=== PATIENT | female | born 1960 ===

== ENCOUNTER 2025-03-26 19:57 | Observation (INO) | payer BC, MEDICARE ==
[~2025-03-26] VITALS: Ht 154.9 cm; Wt 84.1 kg
[2025-03-26 21:59] VITALS: BP 150/70
[2025-03-26] MEDS ORDERED: Ondansetron HCl 2 MG / ML 2ML Vial IV PRN (22:30)
[2025-03-26] MEDS ORDERED: FLU VACC TS2025-26(6MOS UP)/PF 45 MCG/0.5 ML SYRINGE IM SCH (22:30)
[2025-03-26 23:06] LABS: pH Blood Venous 7.38 (7.34-7.37)
[2025-03-26 23:17] LABS: Prothrombin Time Results 10.8 Sec (9.7-11.5)
[2025-03-26 23:27] LABS: Alanine Aminotransfer (ALT/SGP 30.0 U/L (12-78); Albumin, Blood 3.1 g/dL (3.4-5.0); Albumin/Globulin Ratio 0.8 (0.8-1.8); Anion Gap 16.0 mmol/L (3-11); Aspartate Aminotrans (AST/SGOT 22.0 U/L (12-37); Bilirubin, Total 0.4 mg/dL (0.1-1.0); Blood Urea Nitrogen 16.0 mg/dL (8-24); CO2, Blood 23.0 mmol/L (21-32); Calcium, Blood 9.0 mg/dL (8.5-10.1); Chloride, Blood 105.0 mmol/L (98-108); Creatinine, Blood 1.73 mg/dL (0.40-1.00); Globulin, Blood 4.0 g/dL (2.2-4.0); Glucose, Blood 98.0 mg/dL (70-99); Magnesium, Blood 2.9 mg/dL (1.6-2.4); Potassium, Blood 4.0 mmol/L (3.5-5.5); Sodium, Blood 140.0 mmol/L (136-145); Total Protein, Blood 7.1 g/dL (6.4-8.2)
[2025-03-26 23:34] LABS: Hematocrit 38.9 % (33.0-51.0); Hemoglobin 13.2 g/dL (11.5-16.0); Mean Corpuscular HGB Conc 33.9 g/dL (31.5-36.5); Mean Corpuscular Volume 84 fL (80-100); Platelet Count 743 K/mm3 (150-400); RDW Coefficient Variation 15.2 % (11.7-14.2); RDW Standard Deviation 46.6 fL (35.1-46.3)
[2025-03-26 23:40] LABS: NRBC ABSOLUTE 0.00 K/mm3 (0.00-0.02); NRBC Auto 0.0 /100 WBC (0.0-0.2)
[2025-03-27 00:18] LABS: BAND PERCENT MAN 1 % (0-8); BASOPHILS ABSOLUTE MAN 0.07 K/mm3 (0.00-0.23); BASOPHILS PERCENT MAN 1 % (0-2); EOSINOPHILS ABSOLUTE MAN 0.07 K/mm3 (0.00-0.68); EOSINOPHILS PERCENT MAN 1 % (0-6); LYMPHOCYTES ABSOLUTE MAN 1.00 K/mm3 (0.84-5.20); LYMPHOCYTES PERCENT MAN 13 % (21-46); MONOCYTES ABSOLUTE MAN 0.77 K/mm3 (0.16-1.47); MONOCYTES PERCENT MAN 10 % (4-13); NEUTROPHILS ABSOLUTE MAN 5.79 K/mm3 (1.96-9.15); SEG NEUTROPHILS PERCENT MAN 74 % (41-73)
[2025-03-27 03:34] LABS: U Amphetamine Screen Not Detected; U Barbiturate Screen Not Detected; U Benzodiazapine Screen Not Detected; U Buprenorphine Screen Not Detected; U Cannabinoids Screen Not Detected; U Cocaine Screen Not Detected; U Methadone Screen Not Detected; U Methamphetamine Screen Not Detected; U Opiates Screen Not Detected; U Oxycodone Screen Not Detected; U Phencyclidine Screen Not Detected
[2025-03-27] MEDS ORDERED: DOCU100 PO (04:02)
[2025-03-27] MEDS ORDERED: ENOX40I SC (04:02)
[2025-03-27] MEDS ORDERED: Acetaminophen650 M1 PO (04:02)
[2025-03-27] MEDS ORDERED: Percocet 5-3251 EACH PO (04:03)
[2025-03-27] MEDS ORDERED: Ultram50 MG (04:04)
[2025-03-27] MEDS ORDERED: PANT40 PO (04:04)
[2025-03-27] MEDS ORDERED: BACL20 PO (04:05)
[2025-03-27 04:33] VITALS: BP 151/75
--- NOTE | 2025-03-27 05:43 | NUR ---
PT IS A DIRECT ADMIT FROM [place] FOR ENCEPHALAPATHY. PT ARRIVED TO ROOM BY TRANSPORT AT APPROX 2200. PT IS A FULL CODE. REPORT RECEIVED FROM RN AT [place]. THE PATIENT IS COMPLETE PARAPLEGIC FROM INJURY APOX 30 YRS AGO. PT RECENTLY HOSPITALIZED IN [place] FOR A UTI WITH ESBL IN URINE. PT WAS DICHARGED HOME AFTER RESOLVED UTI BUT RETURNED TO HOSPITAL WITH AMS. THE PT'S ORIENTATION IS DIFFICULT TO ASSES DUE TO EXPRESSIVE APHASIA. PT KNOWS WHO SHE IS BUT UNABLE TO ANSWER QUESTIONS. NOTED PT'S FRUSTRATION WHEN TRYING TO COMMUNICATE. PT LIVES WITH HER AND FOR 34 YEARS. PT'S SKIN IS IN OVERAL POOR CONDITION. PT HAS BRUISING AND SCRATCHING SCATTERED T/O. PT UNABLE TO VERBALIZED CAUSE BUT WHEN ASKED IF THERE ARE SAFETY CONCERS AT HOME OR WITH SPOUSE, PT DENIES CONCERNS. PT HAS A CRONIC STAGE 4 PU TO RIGH HIP. SHE SELF CATHS AT HOME MULTIPLE TIMES A DAY DUE TO NEUROGENIC BLADDER. PT IS UNABLE TO SELF CATH DUE TO MENTATION. SPOKE TO DR PERKINS. ORDER FOR MCINTOSH AND WOUND CARE OBTAINED. ALLERGIES AND MEDICATION LIST UPDATED WITH DIRECT ADMIT PAPERWORK. MRI IS ORDERED BUT PT IS UNABLE TO COMPLETE THE FORM. PT'S WILL NEED TO BE CONTACTED TO ASSIST COMPLETION. PT'S HX INDICATED A STENT WAS PLACED APROX 30 YEARS AGO WHEN LIVING IN [place]. RECORDS MAY NEED TO BE OBTAINED TO DETERMINE IF THE STENT MATERIAL IS SUITABLE WITH AN MRI. Q4 NEURO CHECKS ORDERED. PT STRENGTH IS EQUAL. LE'S ARE FLACCID AT BASELINE. PT ORIENTED TO ROOM AND CALL LIGHT. CALL LIGHT ACCESSIBLE.
[2025-03-27 06:20] LABS: BASOPHILS ABSOLUTE AUTO 0.07 K/mm3 (0.00-0.23); BASOPHILS PERCENT AUTO 1 % (0-2); EOSINOPHILS ABSOLUTE AUTO 0.10 K/mm3 (0.00-0.68); EOSINOPHILS PERCENT AUTO 2 % (0-6); Hematocrit 37.5 % (33.0-51.0); Hemoglobin 12.5 g/dL (11.5-16.0); IMMATURE GRAN ABSOLUTE AUTO 0.03 K/mm3 (0.00-0.10); IMMATURE GRAN PERCENT AUTO 0 % (0-1); LYMPHOCYTES ABSOLUTE AUTO 0.99 K/mm3 (0.84-5.20); LYMPHOCYTES PERCENT AUTO 15 % (21-46); MONOCYTES ABSOLUTE AUTO 0.71 K/mm3 (0.16-1.47); MONOCYTES PERCENT AUTO 11 % (4-13); Mean Corpuscular HGB Conc 33.3 g/dL (31.5-36.5); Mean Corpuscular Volume 84 fL (80-100); NEUTROPHILS ABSOLUTE AUTO 4.89 K/mm3 (1.96-9.15); NEUTROPHILS PERCENT AUTO 72 % (41-73); NRBC ABSOLUTE 0.00 K/mm3 (0.00-0.02); NRBC Auto 0.0 /100 WBC (0.0-0.2); Platelet Count 730 K/mm3 (150-400); RDW Coefficient Variation 15.2 % (11.7-14.2); RDW Standard Deviation 47.1 fL (35.1-46.3)
[2025-03-27 06:34] LABS: Alanine Aminotransfer (ALT/SGP 29.0 U/L (12-78); Albumin, Blood 2.9 g/dL (3.4-5.0); Albumin/Globulin Ratio 0.7 (0.8-1.8); Anion Gap 12.0 mmol/L (3-11); Aspartate Aminotrans (AST/SGOT 16.0 U/L (12-37); Bilirubin, Total 0.5 mg/dL (0.1-1.0); Blood Urea Nitrogen 17.0 mg/dL (8-24); CO2, Blood 25.0 mmol/L (21-32); Calcium, Blood 8.7 mg/dL (8.5-10.1); Chloride, Blood 107.0 mmol/L (98-108); Creatinine, Blood 1.83 mg/dL (0.40-1.00); Globulin, Blood 4.3 g/dL (2.2-4.0); Glucose, Blood 98.0 mg/dL (70-99); Magnesium, Blood 2.6 mg/dL (1.6-2.4); Potassium, Blood 3.7 mmol/L (3.5-5.5); Sodium, Blood 140.0 mmol/L (136-145); Total Protein, Blood 7.2 g/dL (6.4-8.2)
[2025-03-27 07:18] VITALS: BP 145/75
[2025-03-27] MEDS ORDERED: Enoxaparin 40 MG/0.4 ML SYR SC SCH (09:00)
--- NOTE | 2025-03-27 10:33 | NUR ---
PATIENT COMPLETED AND PASSED SWALLOW EVAL
[2025-03-27 12:00] LABS: Source, Urine Foley catheter
[2025-03-27 12:39] LABS: Bilirubin, Urine Neg (Neg); Color, Urine Yellow (P-Yellow); Glucose Qualitative, Urine Neg (Neg); Ketones, Urine 2+ (Neg); Leukocyte Esterase, Urine 1+ (Neg); Protein, Urine 2+ (Neg); Specific Gravity, Urine 1.015 (1.003-1.022); Urobilinogen, Urine NORM (Normal)
[2025-03-27 13:10] LABS: Yeast/Fungi Urine Many /hpf
[2025-03-27 15:05] VITALS: BP 149/70
[2025-03-27] MEDS ORDERED: BACLOFEN 20 MG TAB PO SCH (17:00)
[2025-03-27] MEDS ORDERED: Polyethylene Glycol 3350 17 gm PO PRN (17:15)
--- NOTE | 2025-03-27 18:35 | NUR ---
PATIENT STARTED THE DAY WITH SHORT ONE/TWO WORD ANSWERS.EXPRESSIVE APHASIA. BY THE END OF THE DAY SHE WAS VERY TALKATIVE IN COMPLETE SENTENCES . SHE REMAIN SLIGHTLY CONFUSED. ALERT X3. ON RA, ON TELE NSR, THE WOUND ON THE RIGHT HIP WAS DRESSED WITH MEPALEX. NO DRAINAGE NOTED. NO IV IN RIGHT ARM . MRI COMPLETED WITH NEG RESULTS. URINE CULTURE SENT. PASSED BEDSIDE SWALLOW. RUNNING LR AT 75. REFUSING TO EAT ANYTHING ALL DAY. JUST SIPS OF WATER.
[2025-03-27 19:23] VITALS: BP 168/91
[2025-03-27 19:42] VITALS: BP 156/96
[2025-03-27] MEDS ORDERED: Docusate Sodium/Senna 1 Tab PO SCH (21:00)
[2025-03-28 00:08] VITALS: BP 169/81
--- NOTE | 2025-03-28 03:34 | NUR ---
SHIFT SUMMARY: PT VERY TALKATIVE THIS SHIFT AND SPEAKING IN FULL SENTENCES BUT IS STILL CONFUSED AND SENTENCES DO NOT MAKE SENSE. PT HAS A MCINTOSH IN PLACE AND IS DRAINING TO GRAVITY. NO ACUTE CHANGES THIS SHIFT.
[2025-03-28 05:18] LABS: Hematocrit 37.9 % (33.0-51.0); Hemoglobin 12.7 g/dL (11.5-16.0); Mean Corpuscular HGB Conc 33.5 g/dL (31.5-36.5); Mean Corpuscular Volume 85 fL (80-100); NRBC ABSOLUTE 0.00 K/mm3 (0.00-0.02); NRBC Auto 0.0 /100 WBC (0.0-0.2); Platelet Count 709 K/mm3 (150-400); RDW Coefficient Variation 15.5 % (11.7-14.2); RDW Standard Deviation 48.5 fL (35.1-46.3)
[2025-03-28 05:31] LABS: Albumin, Blood 3.0 g/dL (3.4-5.0); Anion Gap 14 mmol/L (3-11); Blood Urea Nitrogen 16 mg/dL (8-24); CO2, Blood 23 mmol/L (21-32); Calcium, Blood 9.1 mg/dL (8.5-10.1); Chloride, Blood 106 mmol/L (98-108); Creatinine, Blood 1.83 mg/dL (0.40-1.00); Glucose, Blood 87 mg/dL (70-99); Magnesium, Blood 2.5 mg/dL (1.6-2.4); Phosphorus, Blood 3.3 mg/dL (2.5-4.9); Potassium, Blood 3.6 mmol/L (3.5-5.5); Sodium, Blood 139 mmol/L (136-145)
[2025-03-28 06:10] VITALS: BP 169/92
[2025-03-28 07:12] VITALS: BP 135/84
[2025-03-28] MEDS ORDERED: NS 1,000 ML IV SCH (10:00)
[2025-03-28 11:46] VITALS: BP 154/83
[2025-03-28 15:46] VITALS: BP 154/77
--- NOTE | 2025-03-28 16:33 | NUR ---
PATIENT IS AT BASELINE MENTALLY ACCORDING TO FAMILY. PATIENT ATE A WHOLE STEAK AND SALAD AND RICE WITHOUT NAUSEA AND VOMITING. PLAN TO DISCHARGE TOMORROW.
[2025-03-28 19:47] VITALS: BP 154/81
[2025-03-29 00:23] VITALS: BP 155/71
--- NOTE | 2025-03-29 05:26 | NUR ---
SHIFT SUMMARY ADMITTED FOR ENCEPHALOPATHY. FULL CODE. UTI+, NOW RESOLVED. PLAN IS FOR DC HOME TODAY. MINCED MOIST DIET. TELEMETRY: NSR @ [address], SHE SELF CATHS AT HOME FOR NEUROGENIC BLADDER. SHE IS PARAPLEGIC, WC BOUND AT BASELINE. A&O X4, ON RA. IV FLUID INFUSING ORDERED. LOOSE BM'S REPORTED ON PREVIOUS SHIFT. TELEMETRY: NSR @ 90 BPM.
[2025-03-29 08:22] VITALS: BP 148/78
[2025-03-29] MEDS ORDERED: Zinc Sulfate 220 MG Cap (Provides 50MG) PO SCH (09:00)
[2025-03-29] MEDS ORDERED: ZINC220 PO (11:49)
[2025-03-29] MEDS ORDERED: Acerola C500 MG PO (11:49)
--- NOTE | 2025-03-29 13:23 | NUR ---
DISCHARGE NOTE PT A&0X4. PT ADMITTED DUE TO ENEPHALOPATHY. PT REPORTS NO CHEST PAIN/GEN PAIN/SOB, PT HAS HX OF PARAP[place]GIA. DR. GUILLEN ORDERED DISCHARGE. THIS RN CONTACTED DR. GUILLEN TO CLARIFY IF WE ARE TO D/C INDWELLING MCINTOSH. PT REPORTS STRAIGHT CATH AT HOME. DR. GUILLEN REPORTED D/C MCINTOSH. BREAK RN REPORTED MCINTOSH D/C'D. TELE D/C, DURING SHIFT NO TELE REPORTS NOTED. PT REPORTED TO KLARISSA RN "WANT TO LEAVE DRESSING HOW IT IS." IV FLUIDS D/C'D. PT BROUGHT PT WHEELCHAIR. SABRINA BILLS COMPLETED DISCHARGE. KLARISSA RN WENT OVER DISCHARGE AND INSTRUCTIONS. IV D/C. MORTGAGE PROCESSOR ESCORTED PT TO PT ENTERANCE. PT TOOK HOME MED FROM LOCKED DRAWER. .
== END 2025-03-29 12:55 | disposition home or self-care (01) ==
LOC: MEDS 19:57 → ENPENDDIS 03-29 10:52 → MEDS 03-29 12:55
PROVIDERS: Internal Medicine; Student in an Organized Health Care Education/Training Program; ADMIT Student in an Organized Health Care Education/Training Program
DX: G93.40 Encephalopathy, unspecified (principal); N18.9 Chronic kidney disease, unspecified; N17.9 Acute kidney failure, unspecified; N31.9 Neuromuscular dysfunction of bladder, unspecified; G82.21 Paraplegia, complete; L89.154 Pressure ulcer of sacral region, stage 4; G95.0 Syringomyelia and syringobulbia; Z86.718 Personal history of other venous thrombosis and embolism; Z87.440 Personal history of urinary (tract) infections; Z87.891 Personal history of nicotine dependence; Z79.899 Other long term (current) drug therapy; Z88.1 Allergy status to other antibiotic agents; Z88.2 Allergy status to sulfonamides; Z88.5 Allergy status to narcotic agent; Z88.8 Allergy status to other drugs, medicaments and biological substances; Z91.040 Latex allergy status; Z90.81 Acquired absence of spleen
CPT/HCPCS: 36415; 51702; 70551; 74018; 80053; 80069; 81001; 82140; 82803; 82947; 83735; 85025; 85027; 85610; 87086; 87106; 93306; 96372; 96374; A9270; G0378; G0379; J1650; J2405; J7030